=== PATIENT | female | born 2000 | race Caucasian/White ===

== ENCOUNTER → 2021-12-21 | Day surgery (SDC) | payer OTHER ==
[~2021-12-21] VITALS: Ht 165.1 cm; Wt 72.6 kg
[2021-12-21 08:38] LABS: HCG (URINE) SCREEN NEGATIVE (NEGATIVE)
[2021-12-21 08:56] LABS: BASOPHIL 1.1 % (0-2); EOSINOPHIL 1.3 % (0-5); HCT 44.7 % (37.0-47.0); HGB 14.4 g/dl (12.5-16.0); LYMPHOCYTE 28.4 % (15-48); MCH 28.2 pg (25.0-31.0); MCHC 32.2 g/dL (32.0-36.0); MCV 87.5 fL (78.0-100.0); MONOCYTE 9.3 % (0-12); MPV 9.7 fL (6.0-9.5); NEUTROPHIL 59.3 % (41-80); NRBC 0; PLT 359 K/uL (150-400); RBC 5.11 M/uL (4.20-5.40); RDW 13.4 % (11.5-14.0)
[2021-12-21 09:19] LABS: ALBUMIN 4.3 g/dL (3.4-5.0); BILIRUBIN - TOTAL 0.3 mg/dL (0.2-1.0); CREATININE 0.38 mg/dL (0.51-0.95); GLOBULIN (CALCULATION) 4.1 g/dL; POTASSIUM 3.7 mmol/L (3.5-5.1); TOTAL PROTEIN 8.4 g/dL (6.4-8.2)
== END | disposition home or self-care (01) ==
LOC: FAS 07:30
PROVIDERS: Oral & Maxillofacial Surgery
DX: M26.4 Malocclusion, unspecified (principal); K01.1 Impacted teeth; G71.00 Muscular dystrophy, unspecified; F17.290 Nicotine dependence, other tobacco product, uncomplicated; Z20.822 Contact with and (suspected) exposure to COVID-19
CPT/HCPCS: D7210; D7240; 36415; 80053; 84703; 85025; 93005; J1100; J2250; J2405; J2704; J3010; J7120